=== PATIENT | male | born 1995 | race Caucasian/White ===

== ENCOUNTER 2016-12-03 09:11 | Emergency (ER) | payer OTHER ==
[2016-12-03] MEDS ORDERED: Ibuprofen TAB* 400 MG PO ONE (09:36)
[2016-12-03 09:37] VITALS: BP 137/79
--- NOTE | 2016-12-03 10:11 | RAD ---
Indication: Right hand injury. 4 views of the right hand demonstrates no fracture or dislocation. No other bone or joint abnormality is identified. IMPRESSION: No fracture of the right hand is noted. Special attention was paid to the thumb.
--- NOTE | 2016-12-03 10:12 | RAD ---
Indication: Right wrist injury 2 views of the wrist demonstrates no fracture. No other bone or joint abnormality is identified. IMPRESSION: No fracture of the wrist is noted.
--- NOTE | 2016-12-03 10:12 | ED ---
Upper Extremity Pain - HPI Summary HPI Summary: 21 yr old male with injury to the left thumb. Onset yesterday. He got his DIP of the thumb caught in pallet juliet. Pain is moderate. Mostly over the DIP joint of the thumb, 5/10, and radiates into wrist and up to elbow. Denies direct trauma or twisting to the wrist or the forearm elbow. He has no other complaints. He performed his own nail trephenation yesterday. - History of Current Complaint Chief Complaint: UCUpperExtremity Stated Complaint: RIGHT HAND INJURY WC Time Seen by Provider: 12/03/16 09:25 - Allergies/Home Medications Allergies/Adverse Reactions: Allergies Allergy/AdvReac Type Severity Reaction Status Date / Time No Known Allergies Allergy Verified 12/03/16 09:26 PMH/Surg Hx/FS Hx/Imm Hx Previously Healthy: Yes Infectious Disease History: No Infectious Disease History: Denies: Traveled Outside the [place] in Last 30 Days - Family History Known Family History: Positive: None Negative: Renal Disease - Social History Occupation: Employed Full-time Alcohol Use: Rare Substance Use Type: Reports: None Smoking Status (MU): Former Smoker Type: Cigarettes, Smokeless Tobacco Amount Used/How Often: "once in a while" Review of Systems Constitutional: Negative Positive: Other - thumb pain. All Other Systems Reviewed And Are Negative: Yes Physical Exam Triage Information Reviewed: Yes Vital Signs On Initial Exam: Initial Vitals Temp Pulse Resp BP 98.8 F 64 20 137/79 12/03/16 09:19 12/03/16 09:19 12/03/16 09:19 12/03/16 09:19 Vital Signs Reviewed: Yes Appearance: Positive: Well-Appearing, No Pain Distress Head/Face: Positive: Normal Head/Face Inspection Eyes: Positive: EOMI Neck: Positive: Nontender Respiratory/Lung Sounds: Positive: Clear to Auscultation, Breath Sounds Present Cardiovascular: Positive: RRR. Negative: Murmur Abdomen Description: Positive: Nontender Musculoskeletal: Positive: Strength/ROM Intact, Other - he has a nail trephenation hole that he placed himself on the left thumb nail. He has some residual bruising under the nail. He has tenderness over the DIP joint area. No gross deformity. he has pain on adduction and extension of the thumb. No snuff box tenderness. Neurological: Positive: Sensory/Motor Intact, Alert, Oriented to Person Place, Time, CN Intact II-III Psychiatric: Positive: Normal - Esau Coma Scale Best Eye Response: 4 - Spontaneous Best Motor Response: 6 - Obeys Commands Best Verbal Response: 5 - Oriented Procedures - Splinting Hand-Made Type: orthoglass Splint: thumb spica Pre-Proc Neuro Vasc Exam: normal Post-Proc Neuro Vasc Exam: normal Diagnostics - Vital Signs Vital Signs Temp Pulse Resp BP 12/03/16 09:19 98.8 F 64 20 137/79 - Laboratory Lab Statement: Any lab studies that have been ordered have been reviewed, and results considered in the medical decision making process. - Radiology wrist/hand left Xray Interpretation: No Acute Changes Radiology Interpretation Completed By: Radiologist Course/Dx - Course Course Of Treatment: 21 yr old male who performed his own nail trephenation yesterday with relief. Has sprain and contusion to the left thumb. will DC to home in good condition. Thumb spika placed, and follow up with hand. - Diagnoses Provider Diagnoses: Left thumb sprain Discharge - Discharge Plan Condition: Good Disposition: HOME Prescriptions: Ibuprofen TAB* [Motrin TAB* 600 MG] 600 mg PO Q6H PRN #20 tab PRN Reason: Pain Patient Education Materials: Skier's Thumb (ED), Contusion in Adults (ED) Referrals: Non Staff,Doctor [Primary Care Provider] - Jose L Chadwick MD [Medical Doctor] - 3 Days
== END 2016-12-03 11:07 | disposition home or self-care (01) ==
LOC: UCCORT 09:11
DX: S63.602A Unspecified sprain of left thumb, initial encounter (principal); W23.0XXA Caught, crushed, jammed, or pinched between moving objects, initial encounter; Y92.9 Unspecified place or not applicable
CPT/HCPCS: 99212; A9270-GY; G0463

== ENCOUNTER 2018-01-20 15:21 | Emergency (ER) | payer OTHER ==
--- NOTE | 2018-01-20 15:41 | UC ---
Hand/Wrist HPI - HPI Summary HPI Summary: 22 yo male presents with RIGHT thumb pain. He tells me that yesterday at work he was using a wrench and lost control - the wrench kept spinning and hit his thumb. He has had pain, swelling, and decreased ROM since that time. Denies numbness or tingling. - History Of Current Complaint Stated Complaint: WC-RIGHT THUMB INJURY Time Seen by Provider: 01/20/18 15:41 Onset/Duration: Sudden Onset Severity Initially: Moderate Severity Currently: Moderate Pain Intensity: 5 Pain Scale Used: 0-10 Numeric - Allergies/Home Medications Allergies/Adverse Reactions: Allergies Allergy/AdvReac Type Severity Reaction Status Date / Time No Known Allergies Allergy Verified 01/20/18 15:52 Home Medications: Home Medications NK [No Home Medications Reported] 01/20/18 [History Confirmed 01/20/18] PMH/Surg Hx/FS Hx/Imm Hx - Additional Past Medical History Additional PMH: None - Surgical History Surgical History: None - Family History Known Family History: Negative: Renal Disease - Social History Occupation: Employed Full-time Lives: With Family Alcohol Use: Rare Substance Use Type: None Smoking Status (MU): Current Some Day Smoker Type: Cigarettes, Smokeless Tobacco Amount Used/How Often: "once in a while" - Immunization History Most Recent Influenza Vaccination: Not the 2016/2016 Season Most Recent Tetanus Shot: UNKNOWN Review of Systems All Other Systems Reviewed And Are Negative: Yes Constitutional: Positive: Negative Skin: Positive: Negative Respiratory: Positive: Negative Cardiovascular: Positive: Negative Gastrointestinal: Positive: Negative Neurovascular: Positive: Negative Musculoskeletal: Positive: Other: - Right thumb pain Neurological: Positive: Negative Psychological: Positive: Negative Physical Exam - Summary Physical Exam Summary: GENERAL: NAD. WDWN. No pain distress. SKIN: No rashes, sores, lesions, or open wounds. CHEST: No accessory muscle use. Breathing comfortably and in no distress. CV: Pulses intact radial and ulnar. Cap refill <2seconds MSK: RIGHT THUMB: Moderate edema just above MCP. Decreased ROM due to pain and swelling. No snuffbox tenderness. NEURO: Alert. Sensations intact hand and all fingers. PSYCH: Age appropriate behavior. Triage Information Reviewed: Yes Vital Signs: Vital Signs: Temp Pulse Resp BP Pulse Ox 98.6 F 69 17 147/82 100 01/20/18 15:43 01/20/18 15:43 01/20/18 15:43 01/20/18 15:43 01/20/18 15:43 Vital Signs Reviewed: Yes Hand/Wrist Course/Dx - Course Course Of Treatment: XR: IMPRESSION: Nondisplaced mildly comminuted transverse fracture of the proximal phalanx of. the right thumb. Discussed results with pt. He prefers to have a splint/brace that he can take on and off - therefore he was placed in a thumb spica splint. Advised to RICE and f/u with Orthopedics as soon as possible. - Differential Dx/Diagnosis Provider Diagnoses: Nondisplaced mildly comminuted transverse fracture of the proximal phalanx of. the right thumb. Discharge - Sign-Out/Discharge Documenting (check all that apply): Patient Departure All imaging exams completed and their final reports reviewed: Yes - Discharge Plan Condition: Stable Disposition: HOME Patient Education Materials: Thumb Fracture (ED) Referrals: No Primary Care Phys,NOPCP [Primary Care Provider] - Jose L Chadwick MD [Medical Doctor] - As Soon As Possible Additional Instructions: If you develop a fever, shortness of breath, chest pain, new or worsening symptoms - please call your PCP or go to the ED. Your blood pressure was high at todays visit. Please see your primary provider within 4 weeks for recheck and re-evaluation. 1) Wear the thumb spica splint at all times 2) Rest, Ice, and elevate your thumb 3) May take ibuprofen 600mg every 6-8 hours as needed for pain 4) Please call Orthopedics at the number below to schedule a follow up appointment as soon as possible - Billing Disposition and Condition Condition: STABLE Disposition: Home
[2018-01-20 15:52] VITALS: BP 147/82
== END 2018-01-20 16:28 | disposition home or self-care (01) ==
LOC: UCCORT 15:21
DX: S62.514A Nondisplaced fracture of proximal phalanx of right thumb, initial encounter for closed fracture (principal); W22.8XXA Striking against or struck by other objects, initial encounter; Y92.9 Unspecified place or not applicable; Y99.0 Civilian activity done for income or pay; Z72.0 Tobacco use
CPT/HCPCS: 99212; G0463